=== PATIENT | female | born 1970 | race Caucasian/White ===

== ENCOUNTER → 2016-04-22 | Outpatient (CLI) | payer OTHER ==
[~2016-04-22] MED LIST: DIAZ5TAB4 PO; LISI10TA2 PO; OXYC-323 PO
--- NOTE | 2016-04-22 15:11 | KCIC ---
PROCEDURE Abdomen ultrasound HISTORY Abdominal pain. History of medullary sponge kidney. COMPARISON None FINDINGS Pancreas unremarkable Aorta non aneurysmal. Inferior vena cava patent. Liver is borderline enlarged with some coarse echogenicity suggesting fatty infiltration. No evidence of gallstones or gallbladder wall thickening. Common bile duct measures 6 millimeters. The right kidney measures 11.7 cm longitudinal and is without hydronephrosis. Small 14 millimeter lower pole right renal cyst. Left kidney measures 11.0 cm longitudinal and is without hydronephrosis. Spleen is not enlarged. There are some splenic calcifications likely granulomata. IMPRESSION 1. Borderline hepatomegaly with fatty infiltration. 2. Small right kidney cyst. 3. Common bile duct is mildly prominent at 6 millimeters. No evidence cholelithiasis or choledocholithiasis. Electronically signed by: Ricci Lebron MD (Apr 22, 2016 15:09:54)
== END | disposition home or self-care (01) ==
LOC: KCIC US 08:01
PROVIDERS: ATTEND Nurse Practitioner Family
DX: N28.1 Cyst of kidney, acquired (principal); R16.0 Hepatomegaly, not elsewhere classified
CPT/HCPCS: 76700

== ENCOUNTER → 2017-01-25 | Outpatient (CLI) | payer OTHER ==
--- NOTE | 2017-01-25 12:05 | KCIC ---
History: Sacral pain for 6 months, no known injury. Comparison: None. Findings: Frontal and lateral radiographs of the sacrum and coccyx, 3 images. No acute fracture or malalignment is identified. Impression: No acute abnormality identified. Electronically signed by: Ricci Garcia MD (01/25/2017 12:01 PM) [place] [id number]
== END | disposition home or self-care (01) ==
LOC: KCIC 11:37
PROVIDERS: ATTEND Nurse Practitioner Family
DX: M53.3 Sacrococcygeal disorders, not elsewhere classified (principal)
CPT/HCPCS: 72220

== ENCOUNTER → 2017-05-10 | Outpatient (CLI) | payer OTHER | END | disposition home or self-care (01) | LOC: KCIC US 07:50 | DX: M05.79 Rheumatoid arthritis with rheumatoid factor of multiple sites without organ or systems involvement (principal); N28.1 Cyst of kidney, acquired; K76.0 Fatty (change of) liver, not elsewhere classified; R16.1 Splenomegaly, not elsewhere classified | CPT/HCPCS: 73130; 76700 ==

== ENCOUNTER → 2017-06-29 | Outpatient (CLI) | payer OTHER | END | disposition home or self-care (01) | LOC: KCIC MRI 10:08 | DX: M47.897 Other spondylosis, lumbosacral region (principal); M51.37 Other intervertebral disc degeneration, lumbosacral region; M25.78 Osteophyte, vertebrae; D18.09 Hemangioma of other sites | CPT/HCPCS: 72148 ==

== ENCOUNTER → 2017-08-03 | Outpatient (CLI) | payer OTHER | END | disposition home or self-care (01) | LOC: KCIC MRI 12:12 | DX: M53.3 Sacrococcygeal disorders, not elsewhere classified (principal); M47.896 Other spondylosis, lumbar region; R20.0 Anesthesia of skin | CPT/HCPCS: 72195 ==

== ENCOUNTER → 2017-09-01 | Outpatient (CLI) | payer OTHER | END | disposition home or self-care (01) | LOC: KCIC 09:45 | DX: R10.84 Generalized abdominal pain (principal); R14.0 Abdominal distension (gaseous); Z87.11 Personal history of peptic ulcer disease | CPT/HCPCS: 74245 ==

== ENCOUNTER → 2018-12-17 | Outpatient (CLI) | payer OTHER ==
[~2018-12-17] MED LIST changes: -OXYC-323 PO; +OXYC1TAB15 PO
--- NOTE | 2018-12-18 09:17 | KCIC ---
LUMBAR SPINE WO CONTRAST Date: 12/17/2018 5:45 PM Indication: Chronic low back pain, worsening, bilateral lower extremity numbness Comparison: MRI L-spine 06/29/2017. MRI T-spine 11/05/2013. Technique: Multi-planar multi-weighted magnetic resonance imaging of the lumbar spine was performed without intravenous contrast using the standard lumbar spine protocol. FINDINGS: The lumbar spine is normally aligned. No acute fracture. Mild multilevel degenerative disc desiccation and disc height loss. No marrow replacing process to suggest malignancy. The conus terminates at a normal level. No abnormal signal is seen within the visualized distal spinal cord. No clumping of intrathecal nerve roots. Fatty filum. Tiny T2 hypointense focus along the dorsal aspect of the spinal canal at the level of T11-12 is stable since 2013 and is likely a small osteophyte. Partially visualized small renal cysts. T12-L1: No disc bulge. No facet arthropathy. No significant spinal stenosis or neural foraminal narrowing. L1-L2: No disc bulge. No facet arthropathy. No significant spinal stenosis or neural foraminal narrowing. L2-L3: No disc bulge. No facet arthropathy. No significant spinal stenosis or neural foraminal narrowing. L3-L4: No disc bulge. Mild facet arthropathy. No significant spinal stenosis or neural foraminal narrowing. L4-L5: Mild disc bulge. Mild to moderate facet arthropathy. No significant spinal stenosis or neural foraminal narrowing. L5-S1: Mild disc bulge with annular tear and tiny central protrusion. Mild right and mild left facet arthropathy. No significant spinal stenosis or neural foraminal narrowing. IMPRESSION: Mild lumbar spondylosis, not progressed from the prior exam.. Electronically signed by: Fortino Haines MD (12/18/2018 9:15 AM) [id number]
== END | disposition home or self-care (01) ==
LOC: KCIC MRI 17:15
PROVIDERS: ATTEND Family Medicine
DX: M51.27 Other intervertebral disc displacement, lumbosacral region (principal); M12.88 Other specific arthropathies, not elsewhere classified, other specified site; M47.816 Spondylosis without myelopathy or radiculopathy, lumbar region; N28.1 Cyst of kidney, acquired; M25.78 Osteophyte, vertebrae
CPT/HCPCS: 72148

== ENCOUNTER → 2019-02-15 | Outpatient (CLI) | payer OTHER ==
--- NOTE | 2019-02-15 16:47 | KCIC ---
Examination: CT of the abdomen pelvis without contrast HISTORY: History of hematuria, bloating, pain COMPARISON: 04/28/2015 TECHNIQUE: Axial CT images of the abdomen pelvis were performed without contrast. Coronal and sagittal reformats are performed. Exposure: One or more of the following individualized dose reduction techniques were utilized for this examination: 1. Automated exposure control 2. Adjustment of the mA and/or kV according to patient size 3. Use of iterative reconstruction technique FINDINGS: The bibasilar lungs are clear. No evidence of free air identified in the abdomen. The evaluation of the solid organs is limited due to lack of IV contrast. The evaluation of bowel is limited due to lack of oral contrast. The visualized noncontrasted liver, spleen, adrenals grossly appears unremarkable. The gallbladder is mildly distended. The stomach is mildly distended. The visualized pancreas grossly appears unremarkable. The small bowel is nondilated. The appendix is normal. Liquid stool identified in the colon. Urinary bladder is mildly distended. No evidence of intraperitoneal system calculi or hydronephrosis. Cystic structure identified in the right kidney measuring 1.1 cm, difficult to characterize could be a cyst. No evidence of lytic bony destructive lesion. IMPRESSION: 1. No acute intra-abdominal findings. 2. A 1.1 cm cystic structure identified kidney, difficult to characterize could be a cyst or cystic lesion. Follow-up ultrasound would be useful. Electronically signed by: Jacob Burrows MD (02/15/2019 4:44 PM) [id number]
== END | disposition home or self-care (01) ==
LOC: KCIC CT 11:16
PROVIDERS: ATTEND Nurse Practitioner Family
DX: N28.89 Other specified disorders of kidney and ureter (principal)
CPT/HCPCS: 74176

== ENCOUNTER → 2020-06-11 | Outpatient (CLI) | payer OTHER ==
[~2020-06-11] MED LIST changes: +LISI10TA16 PO; -LISI10TA2 PO
--- NOTE | 2020-06-11 15:55 | KCIC ---
EXAM: Cervical, thoracic and lumbar spine MRI without contrast. HISTORY: Lower back pain and neck pain. Bilateral lower extremity pain, numbness and burning. TECHNIQUE: Multiplanar, multisequence magnetic resonance imaging of the cervical, thoracic lumbar spi ne was performed without contrast. COMPARISON: MRI dated 12/17/2018. FINDINGS: Cervical spine: There is no listhesis. The vertebral bodies are normal in height. There is mild endpl ate remodeling at the lower cervical levels. There is no suspicious osseous lesion. There is diffusel y decreased T1 marrow signal intensity. This is most commonly due to anemia in premenopausal females. No spinal cord lesion is seen. There is mild multilevel facet arthropathy. At C2-C3, C3-C4 and C4-C5, there is no stenosis. At C5-C6, there is a posterior central disc protrusion which deforms the ventral aspect of spinal cor d. Also a disc bulge and endplate remodeling. There is mild central canal stenosis measuring 8.0 mm i n anterior posterior dimension. At C6-C7, there is a minimal posterior central disc protrusion superimposed on a disc bulge and endpl ate remodeling. There is no stenosis. Thoracic spine: There is no significant listhesis. The vertebral bodies are normal in height and the disc spaces are preserved. There is mild anterior predominant endplate remodeling. There are few osse ous hemangiomas, the largest of which is seen within T10. No thoracic spinal cord lesion is seen. The re is diffusely decreased T1 marrow signal intensity. This is most commonly due to anemia and premeno pausal females. At T6-T7, there is a shallow left paracentral disc protrusion. No additional significant protrusion i s seen. There is no foraminal or central canal stenosis. Lumbar spine: There is 3 mm retrolisthesis of L5 on S1. There is endplate remodeling and disc desicca tion at this level. There is no fracture. There are few osseous hemangiomas. There is diffusely decre ased T1 marrow signal intensity. This is most commonly due to anemia in postmenopausal females. The c onus terminates at L1. There is a small incidental simple appearing right renal cyst. Follow-up is no t routinely perform for simple cysts. At L1-L2, there is a suspected left extraforaminal to lateral disc protrusion. There is no stenosis. At L2-L3, there is a suspected left extraforaminal to lateral disc protrusion. There is no stenosis. At L3-L4, there is no stenosis. At L4-L5, there is no stenosis. At L5-S1, there is a posterior central disc protrusion superimposed on a disc bulge and endplate monica deling. There is no significant stenosis. IMPRESSION: 1. Multilevel degenerative change involving the cervical, thoracic and lumbar spine, described in det ail above. This is associated with mild central canal stenosis at C5-C6. 2. No acute finding, spinal cord lesion or evidence of significant foraminal stenosis. 3. Diffusely decreased T1 marrow signal intensity. This most commonly due to anemia in premenopausal females. Electronically signed by: Génesis Espinoza MD (06/11/2020 3:52 PM) [facility]
== END ==
LOC: KCIC MRI 13:40
PROVIDERS: ATTEND Nurse Practitioner Family
DX: M47.813 Spondylosis without myelopathy or radiculopathy, cervicothoracic region (principal); M47.816 Spondylosis without myelopathy or radiculopathy, lumbar region; M54.41 Lumbago with sciatica, right side; M54.42 Lumbago with sciatica, left side; M51.26 Other intervertebral disc displacement, lumbar region; M48.02 Spinal stenosis, cervical region
CPT/HCPCS: 72141; 72146; 72148